=== PATIENT | male | born 1970 | race Caucasian/White ===

== ENCOUNTER 2016-10-27 10:21 | Day surgery (SDC) | payer OTHER ==
[2016-10-27] MEDS ORDERED: NS 500 ML IV ONE (10:29)
[2016-10-27] MEDS ORDERED: MIDAZOLAM 2 MG/2 ML VIAL IVP ONE (10:29)
[2016-10-27] MEDS ORDERED: BENZOCAINE UNIT DOSE SPRAY HURRICAINE MM ONE (10:29)
[2016-10-27] MEDS ORDERED: fentaNYL 100 MCG/2 ML INJ IVP ONE (10:29)
[2016-10-27] MEDS ORDERED: PROPOFOL 200 MG/20 ML VIAL IVP ONE (10:29)
--- NOTE | 2016-10-27 10:44 | CPEKG ---
Heart Rate: 192 RR Interval: 312 QRSD Interval: 76 QT Interval: 256 QTC Interval: 458 P [place]: 0 QRS [place]: 38 T Wave [place]: -54 EKG Severity - ABNORMAL ECG - EKG Impression: SUPRAVENTRICULAR TACHYCARDIA EKG Impression: REPOLARIZATION ABNORMALITY, PROB RATE RELATED EKG Impression: SVT IS NOTED IN COMPARISON TO PRIOR ECG WITH ATRIAL FLUTTER Electronically Signed By: Kumar Das 28-Oct-2016 12:54:31
[2016-10-27] MEDS ORDERED: DILTIAZEM 25 MG/5 ML VIAL IVP ONE (11:00)
[2016-10-27] MEDS ORDERED: DILTIAZEM 125 MG in D5W 125 ML IV SCH (11:00)
[2016-10-27 11:02] LABS: % IMMATURE GRANULYOCYTES 0.3 % (0.0-1.1); ABSOLUTE IMMATURE GRANULOCYTES 0.02 10^3/uL (0.00-0.10); ADD DIFF? NO; ADD MORPH? NO; ADD SCAN? NO; ATYPICAL LYMPHOCYTE FLAG 20 (0-99); FRAGMENT RBC FLAG 0 (0-99); HEMATOCRIT 44.8 % (40.0-51.0); HEMOGLOBIN 15.4 g/dL (13.7-17.5); LEFT SHIFT FLG 0 (0-99); LIPEMIA HEMOLYSIS FLAG 90 (0-99); MEAN CELL HEMOGLOBIN 30.4 pg (27.9-34.1); MEAN CELL HEMOGLOBIN CONCENTR. 34.4 g/dL (32.4-36.7); MEAN CELL VOLUME 88.5 fL (81.5-99.8); MEAN PLATELET VOLUME 10.5 fL (8.7-11.7); PLATELET CLUMPS FLAG 10 (0-99); PLATELET COUNT 306 10^3/uL (150-400); RED BLOOD CELL COUNT 5.06 10^6/uL (4.40-6.38); RED CELL DISTRIBUTION WIDTH 12.7 % (11.5-15.2)
[2016-10-27 11:12] LABS: INR 1.17 (0.83-1.16); PROTIME(PATIENT) 14.9 SEC (12.0-15.0)
[2016-10-27 11:13] LABS: APTT 31.6 SEC (23.0-38.0)
[2016-10-27 11:28] LABS: ANION GAP 11 mEq/L (8-16); CALCIUM 9.7 mg/dL (8.5-10.4); CARBON DIOXIDE 21 mEq/l (22-31); CHLORIDE 110 mEq/L (97-110); CREATININE 1.1 mg/dL (0.7-1.3); GLOMERULAR FILTRATION RATE > 60; GLUCOSE 99 mg/dL (70-100); MAGNESIUM 2.3 mg/dL (1.6-2.3); POTASSIUM 5.3 mEq/L (3.5-5.2); SODIUM 142 mEq/L (134-144)
--- NOTE | 2016-10-27 12:06 | CPEKG ---
Heart Rate: 102 RR Interval: 588 P-R Interval: 216 QRSD Interval: 92 QT Interval: 348 QTC Interval: 454 P [place]: -35 QRS [place]: -12 T Wave [place]: 8 EKG Severity - ABNORMAL ECG - EKG Impression: ATRIAL FLUTTER WITH 2:1 CONDUCTION EKG Impression: FIRST DEGREE AV BLOCK EKG Impression: PROBABLE LEFT ATRIAL ABNORMALITY EKG Impression: CONSIDER POSTERIOR INFARCT EKG Impression: ST DEPRESSION, CONSIDER ISCHEMIA, INF LEADS EKG Impression: PRIOR ECG WITH SVT NOTED Electronically Signed By: Kumar Das 28-Oct-2016 12:54:46
[2016-10-27] MEDS ORDERED: PROPOFOL 200 MG/20 ML VIAL ONE ×3 (13:56→14:34)
--- NOTE | 2016-10-27 15:52 | CPEKG ---
Heart Rate: 73 RR Interval: 822 P-R Interval: 148 QRSD Interval: 90 QT Interval: 444 QTC Interval: 490 P [place]: 57 QRS [place]: 3 T Wave [place]: -21 EKG Severity - ABNORMAL ECG - EKG Impression: SINUS RHYTHM EKG Impression: MULTIPLE ATRIAL PREMATURE COMPLEXES EKG Impression: BORDERLINE T ABNORMALITIES, DIFFUSE LEADS EKG Impression: BORDERLINE PROLONGED QT INTERVAL EKG Impression: SINUS RHYTHM HAS REPLACED ATRIAL FLUTTER WITH 2:1 CONDUCTION Electronically Signed By: Kumar Das 28-Oct-2016 12:54:39
--- NOTE | 2016-10-27 16:12 | PDTEE1 ---
RAUL Cardioversion Procedure Procedure: Electrical Cardioversion, Transesophageal Echo Indications: Other (Atrial flutter) Procedural Details: Pads were placed in anterior-posterior position. RAUL probe was advanced and standard images obtained. There is no evidence of left atrial or left atrial appendage thrombus. Synchronized cardioversion attempt #1: 200J Results: Normal sinus rhythm Conclusions: Successful RAUL Cardioversion Patient Problems: Problems Problem Status Onset Atrial flutter Acute
--- NOTE | 2016-10-28 15:56 | ECHO ---
[id number] + + [address] : : [facility] [address] : : [phone] + + Transesophageal Echocardiographic Report + -------+ :Name: ROSETTA CANDELARIO PStudy Date: 10/27/2016 02:37 PM : : Hospital Admission Number: [id number] Locati on: CVC: :: 1970 Gender: Male : :Age: 46 yrs Race: WH : :Reason For Study: Eval LV Fx : :History: Pre Cardioversion : + -------+ Left Ventricle The left ventricular ejection fraction is normal. Atria Injection of contrast documented no interatrial shunt. The atrial septum is aneurysmal. A patent foramen ovale is present. No left atrial mass or thrombus visualized. No thrombus is detected in the left atrial appendage. Mitral Valve The mitral valve is normal in structure and function. There is mild mitral regurgitation. Tricuspid Valve Normal tricuspid valve. There is trace tricuspid regurgitation. Aortic Valve The aortic valve is normal in structure and function. The aortic valve is trileaflet. There is no aortic stenosis. There is no aortic insufficiency. Pulmonic Valve The pulmonic valve is normal in structure and function. There is no pulmonic valvular regurgitation. Conclusion A 2D transesophageal echocardiogram with color flow Doppler was performed. The left ventricular ejection fraction is normal. Injection of contrast documented no interatrial shunt. The atrial septum is aneurysmal. A patent foramen ovale is present. No left atrial mass or thrombus visualized. No thrombus is detected in the left atrial appendage. The mitral valve is normal in structure and function. There is mild mitral regurgitation. There is trace tricuspid regurgitation. The aortic valve is normal in structure and function. The aortic valve is trileaflet. Proceeded with successful elective DC cardioversion. Final Reading Physician: Rudy Clay signed on 10/28/2016 03:54 PM Ordering Physician: Alex Reynoso Performed By: Jimmy Dale MD
== END 2016-10-27 17:00 | disposition home or self-care (01) ==
LOC: FCATH 10:21
PROVIDERS: ATTEND Internal Medicine Cardiovascular Disease
PROC: B245ZZ4 Ultrasonography of Left Heart, Transesophageal (ICD-10-PCS; principal; 2016-10-27)
PROC: 5A2204Z Restoration of Cardiac Rhythm, Single (ICD-10-PCS; principal; 2016-10-27)
DX: I48.92 Unspecified atrial flutter (principal); Z82.41 Family history of sudden cardiac death
CPT/HCPCS: J2704

== ENCOUNTER → 2018-10-24 | Outpatient (CLI) | payer OTHER | LOC: BMCIMAGING 16:21 | PROVIDERS: ATTEND Family Medicine | DX: S99.922A Unspecified injury of left foot, initial encounter (principal) ==